=== PATIENT | female | born 1960 | race Caucasian/White ===

== ENCOUNTER 2019-05-31 15:56 | Emergency (ER) | payer OTHER, MEDICARE, SELFPAY ==
--- NOTE | 2019-05-31 16:02 | ED.GENADULT ---
HPI - General Adult General Chief complaint: Ear Stated complaint: Left ear pain Time Seen by Provider: 05/31/19 16:19 Source: patient Mode of arrival: ambulatory Limitations: no limitations History of Present Illness HPI narrative: 58-year-old female patient presents to the [facility] with complaints of left ear pain that started last night and is gotten increasingly worse this morning. Patient denies any fevers that she is aware of. Patient states she was taking some Sudafed as well as using a warm compress over the left ear to help with her pain. Patient rates her pain a 9 out of 10 at this time. Patient denies any discharge coming from the ear that she is aware of. Denies any runny nose, stuffy nose, sore throat or cough symptoms. Patient denies any chronic history of ear infections. Patient states she normally is a swimmer but to the fact that the gyms are close at this time she has not swam in a pool in over a month. Related Data Home Medications Medication Instructions Recorded Confirmed atenolol [Tenormin] 50 mg PO DAILY 05/31/19 05/31/19 carbamazepine [Tegretol XR] 150 mg PO DAILY 05/31/19 05/31/19 escitalopram oxalate [Lexapro] 20 mg PO DAILY 05/31/19 05/31/19 insulin glargine [Basaglar KwikPen 1 unit SUBCUT DAILY 05/31/19 05/31/19 U-100 Insulin] insulin lispro [Humalog KwikPen 1 unit SUBCUT DAILY 05/31/19 05/31/19 Insulin] lisinopril [Zestril] 40 mg PO BID 05/31/19 05/31/19 tizanidine [Zanaflex] 4 mg PO TID 05/31/19 05/31/19 tramadol [Ultram] 50 mg PO TID 05/31/19 05/31/19 Allergies Allergy/AdvReac Type Severity Reaction Status Date / Time Penicillins Allergy Unknown Anaphylaxis Verified 05/31/19 16:20 Review of Systems Review of Systems: Narrative: CONSTITUTIONAL: Denies fever, chills, or sweats. EYES: Denies visual changes, redness, or discharge. ENT: Denies rhinorrhea, congestion, sore throat, positive left otalgia. CARDIOVASCULAR: Denies chest pain, palpitations, or edema. RESPIRATORY: Denies cough or dyspnea. GASTROINTESTINAL: Denies abdominal pain, nausea, vomiting, or diarrhea. GENITOURINARY: Denies dysuria or hematuria. SKIN: Denies rash or itching. MUSCULOSKELETAL: Denies back pain, joint pain, or myalgia. NEUROLOGIC: Denies headache, numbness, or weakness. PSYCHIATRIC: Denies anxiety or depression. PMFSH Social History Social History Gender identity (if verbalized by the patient): Female Comments At the time of my signature I agree with nursing past medical history, surgical, social, and family history. There is no relevant family history pertinent to the presenting complaint. Exam Narrative: Exam Narrative: GENERAL: Well-appearing, well-nourished, and in no acute distress. HEAD: Normocephalic, atraumatic. EYES: PERRLA and EOMI. ENT: Nares clear, no rhinorrhea or epistaxis. Mucous membranes moist. Canal of left ear is swollen, red. The TM on the left side does look normal at this time. There is no obvious discharge noted to the canal. NECK: Supple. No lymphadenopathy CHEST: Clear to auscultation. No respiratory distress. HEART: Regular rate and rhythm. No murmur heard. Normal peripheral pulses. ABDOMEN: Soft, nontender, nondistended, normal active bowel sounds. EXTREMITIES: Normal range of motion. No edema. SKIN: Warm, dry, no rash. NEURO: No focal deficits. Alert and oriented x3. Course Vital Signs Vital signs: Vital Signs Temperature 37.6 C 05/31/19 16:14 Pulse Rate 78 05/31/19 16:14 Respiratory Rate 16 05/31/19 16:14 Blood Pressure 208/85 H 05/31/19 16:14 Pulse Oximetry 98 05/31/19 16:14 Temperature 37.6 C 05/31/19 16:14 Pulse Rate 78 05/31/19 16:14 Respiratory Rate 16 05/31/19 16:14 Blood Pressure 208/85 H 05/31/19 16:14 Pulse Oximetry 98 05/31/19 16:14 Vital signs reviewed. The patient has been informed that they may have pre-hypertension or Hypertension based on a BP reading i
[2019-05-31 16:14] VITALS: BP 208/85; PULSE 78; RESP 16; TEMP 37.6; O2SAT 98
== END 2019-05-31 16:29 | disposition home or self-care (01) ==
PROVIDERS: Emergency Provider Nurse Practitioner Family; PCP Family Medicine
DX: H60.502 Unspecified acute noninfective otitis externa, left ear (principal); G35 Multiple sclerosis; E11.9 Type 2 diabetes mellitus without complications
CPT/HCPCS: 99213; G0463

== ENCOUNTER 2022-08-13 15:16 | Outpatient (CLI) | payer OTHER, MEDICARE, SELFPAY ==
[2022-08-13 16:12] LABS: Anion Gap 6 mmol/L (8-16); Blood Urea Nitrogen 16 mg/dL (7-17); Calcium 8.9 mg/dL (8.4-10.2); Carbon Dioxide 22 mmol/L (22-30); Chloride 103 mmol/L (98-107); Estimated Glomerular Filt Rate > 60; Glucose 191 mg/dL (65-110); Potassium 4.4 mmol/L (3.4-5.0); Sodium 131 mmol/L (137-145)
[2022-08-17 07:33] LABS: Carbamazepine Tegretol 2.9 mcg/mL (4.0-12.0)
== END 2022-08-13 15:17 | disposition home or self-care (01) ==
LOC: ANHSURGERY 15:26
PROVIDERS: Anesthesiology; PCP Emergency Medicine; Visit Provider Urology
DX: N36.42 Intrinsic sphincter deficiency (ISD) (principal); E11.9 Type 2 diabetes mellitus without complications; Z79.899 Other long term (current) drug therapy; Z01.818 Encounter for other preprocedural examination
CPT/HCPCS: 36415; 80048; 80156; 85610; 85730; 87086

== ENCOUNTER 2022-08-17 03:14 | Day surgery (SDC) | payer OTHER, MEDICARE, SELFPAY ==
[2022-08-09 12:05] VITALS: BMI 60.0
--- NOTE | 2022-08-09 12:15 | PC.NURSE ---
Report to the Outpatient Waiting Room, entrance under the green pavilion located off [facility], at time 8:45 on date 08/17/22. Planned Procedure Time: 10:45. Time changes happen often and if your time is changed the preop area will call you the afternoon before. - You and your visitor will be asked to self-screen and do not enter if you have any COVID symptoms. - A mask is optional within the hospital at this time. Patients may have clear liquids (water, carbonated beverages, clear teas, apple juice) until 3 hours prior to surgery (7:45) with a maximum of 20 ounces. - No food from midnight until time of surgery Take the following medications with a SIP of water the morning of surgery: ATENOLOL, LEXAPRO, CLONAZEPAM IF NEEDED DO NOT STOP ANY OF YOUR OTHER PRESCRIPTION MEDICATIONS PRIOR TO SURGERY EXCEPT THE FOLLOWING Medications to discontinue per physician: VITAMINS/SUPPLEMENTS Date to take last dose: 08/13/22 (OR PER DR. BONNER) Please no make-up, nail kiswahili, hairspray, perfume, deodorant, or body powder the day of surgery. No jewelry (including any body piercings) or valuables the day of surgery, leave them at home. Please take a shower or bath the night before, or the morning of, surgery with an antibacterial soap. Wear comfortable, loose fitting clothing. - Jewelry must be removed prior to entering the operating room. Rings and piercings that are not removed may be cut off. - The hospital will not accept responsibility for valuables. - Please leave all valuables, including medications, at home the day of surgery. If you are going home after surgery, a licensed trencher driver must drive you home. - NO public transportation without another adult if you receive anesthesia. - We recommend that an adult stay with you for 24 hours following discharge. - We also recommend that you do not drive, make important decision, drink alcoholic beverages, or take any drugs that were not prescribed by your health care provider for at least 24 hours after your discharge time. Follow any additional instructions given to you from your surgeon. If you or anyone in your household have experienced Covid symptoms in the past week, please notify your surgeon or the nurse liaison at the phone number below for possible testing. Telephone instructions given to PT - RUFINO JOSE and asked if any additional questions and then verbalized understanding. Patient advised to call surgeon office or pre surgery nurse liaison [phone] if any additional questions.
--- NOTE | 2022-08-11 18:11 | PM.IMHP ---
H&P: HPI History of Present Illness Date/Time: 08/11/22 18:11 Chief Complaint: incontinence Narrative: she has mixed urinary incontinence. She is on combination therapy for urge incontinence. She has limited options for her stress incontinence. She is morbidly obese and is undergoing evaluation for weight loss surgery Review of Systems Review of Systems: All systems reviewed & are unremarkable except as noted in HPI and below PMFSH Family History Family History Father Alcoholism Hypertension Depression Heart disease Cerebrovascular accident Other Alcoholism Cancer Hypertension Heart disease Grandparent Alcoholism Hypertension Mother Diabetes mellitus Social History Social History Smoking status: Never smoker Alcohol intake: former Alcohol use details: QUIT 2 YRS AGO Substance use: never Substance use type: does not use Living arrangements: with family Gender identity (if verbalized by the patient): Female Spiritual care concerns: No Meds Home Medications and Allergies Home Medications Medication Instructions Recorded Confirmed Type atenolol 50 mg tablet (Tenormin) 50 mg PO DAILY 05/31/19 08/09/22 History carbamazepine 100 mg 150 mg PO HS 05/31/19 08/09/22 History tablet,extended release,12 hr (Tegretol XR) escitalopram oxalate 20 mg tablet 20 mg PO DAILY 05/31/19 08/09/22 History (Lexapro) insulin glargine 100 unit/mL (3 1 unit subcut DAILY 05/31/19 08/09/22 History mL) subcutaneous pen (Basaglar KwikPen U-100 Insulin) insulin lispro 200 unit/mL (3 mL) 1 unit subcut DAILY 05/31/19 08/09/22 History subcutaneous pen (Humalog KwikPen U-200 Insulin) lisinopril 40 mg tablet (Zestril) 40 mg PO BID 05/31/19 08/09/22 History tizanidine 4 mg tablet (Zanaflex) 4 mg PO HS 05/31/19 08/09/22 History tramadol 50 mg tablet (Ultram) 50 mg PO TID PRN Pain 05/31/19 08/09/22 History atorvastatin 20 mg tablet 20 mg PO DAILY 11/29/21 08/09/22 History biotin 1 mg capsule 1 mg PO DAILY 11/29/21 08/09/22 History cholecalciferol (vitamin D3) 25 25 mcg PO DAILY 11/29/21 08/09/22 History mcg (1,000 unit) capsule clonazepam 0.5 mg tablet 0.5 mg PO DAILY 11/29/21 08/09/22 History clonazepam 0.5 mg tablet 0.5 mg PO QHS 11/29/21 08/09/22 History Lactobacillus 1 cap PO DAILY 08/09/22 08/09/22 History acidophilus-Bifidobac.animalis 2.5 billion cell capsule (Daily Probiotic) magnesium chloride 71.5 mg 71.5 mg PO DAILY 08/09/22 08/09/22 History (magnesium chloride) tablet,delayed release (Slow-Mag) Allergies Allergy/AdvReac Type Severity Reaction Status Date / Time Penicillins Allergy Unknown Anaphylaxis Verified 08/09/22 12:00 latex AdvReac Rash Verified 08/09/22 12:00 Exam Narrative: morbid obesity no acute distress limited mobility Assessment and Plan Assessment and plan (1) Intrinsic sphincter deficiency (ISD): Code(s): N36.42 - Intrinsic sphincter deficiency (ISD) Status: Acute Assessment and Plan: plan for bulking agent. She understands my options a very limited. She has multiple risk factors for incontinence. She understands this will not help her overactive bladder. She understands I am going for improvement in her stress incontinence symptoms but do not expect 100% cure. She understands risks of bleeding, infection, damage to the area checked, urinary retention, need for repeat procedures. She agrees to proceed
[2022-08-17] VITALS (9 sets, daily range): BP systolic 88–135; BP diastolic 42–60; PULSE 43–52; RESP 10–18; TEMP 36.1–36.2; O2SAT 96–100
--- NOTE | 2022-08-17 07:18 | WPDHPUPDATE1 ---
History and Physical Update Update Date/Time: 08/17/22 07:18 History and Physical has been reviewed, including an updated exam of the patient. There are NO changes in the patient's condition. Risks, benefits, and alternatives have been discussed and questions answered. Patient agrees to proceed with procedure.
--- NOTE | 2022-08-17 08:30 | WPDANESEPPF ---
Anes - Initial Pre Proc Eval Procedure: Operation Date: 08/17/22 10:45 Proposed Procedures p Cystoscopy with Injection Bulkamid - Fredis Khan MD Date/Time: 08/17/22 08:30 Surgeon: Fredis Khan MD Pre Op Diagnosis: Intrinsic Sphincter Def Patient Data Age: 62 Gender: F Height: 1.63 m Weight: 158.8 kg Allergies Allergy/AdvReac Type Severity Reaction Status Date / Time Penicillins Allergy Severe Anaphylaxis Verified 08/17/22 09:43 latex AdvReac Intermediate Rash Verified 08/17/22 09:43 Home Medications Medication Instructions Recorded Confirmed Type atenolol 50 mg tablet (Tenormin) 50 mg PO DAILY 05/31/19 08/17/22 History carbamazepine 100 mg 150 mg PO HS 05/31/19 08/17/22 History tablet,extended release,12 hr (Tegretol XR) escitalopram oxalate 20 mg tablet 20 mg PO DAILY 05/31/19 08/17/22 History (Lexapro) insulin glargine 100 unit/mL (3 1 unit subcut DAILY 05/31/19 08/17/22 History mL) subcutaneous pen (Basaglar KwikPen U-100 Insulin) insulin lispro 200 unit/mL (3 mL) 1 unit subcut DAILY 05/31/19 08/17/22 History subcutaneous pen (Humalog KwikPen U-200 Insulin) lisinopril 40 mg tablet (Zestril) 40 mg PO BID 05/31/19 08/17/22 History tizanidine 4 mg tablet (Zanaflex) 4 mg PO HS 05/31/19 08/17/22 History tramadol 50 mg tablet (Ultram) 50 mg PO TID PRN Pain 05/31/19 08/17/22 History atorvastatin 20 mg tablet 20 mg PO DAILY 11/29/21 08/17/22 History biotin 1 mg capsule 1 mg PO DAILY 11/29/21 08/17/22 History cholecalciferol (vitamin D3) 25 25 mcg PO DAILY 11/29/21 08/17/22 History mcg (1,000 unit) capsule Lactobacillus 1 cap PO DAILY 08/09/22 08/17/22 History acidophilus-Bifidobac.animalis 2.5 billion cell capsule (Daily Probiotic) magnesium chloride 71.5 mg 71.5 mg PO DAILY 08/09/22 08/17/22 History (magnesium chloride) tablet,delayed release (Slow-Mag) Ativan 25 mg PO HS 08/17/22 08/17/22 History Patient hx anesthesia problems: none Family hx anesthesia problems: none Results Review: All pre-operative results and documents have been reviewed as part of the pre-operative evaluation. [facility] Past Medical History Medical History (Updated 08/17/22 @ 08:31 by Rick Hobbs DO) Cirrhosis Diabetes Hyperlipidemia Hypertension THA (obstructive sleep apnea) Thrombocytopenia TMJ (temporomandibular joint disorder) Family History Family History Father Alcoholism Hypertension Depression Heart disease Cerebrovascular accident Other Alcoholism Cancer Hypertension Heart disease Grandparent Alcoholism Hypertension Mother Diabetes mellitus Social History Social History Smoking status: Never smoker Alcohol intake: former Alcohol use details: QUIT 2 YRS AGO Substance use: never Substance use type: does not use Living arrangements: with family Gender identity (if verbalized by the patient): Female Spiritual care concerns: No Anes - Eval Final PreProcedure Day of Procedure 08/17/22 08:30 Patient weight: super morbidly obese Heart: regular rate and rhythm Lungs: clear to auscultation Airway: Mallampati scale class III Neurological: alert and oriented Last oral intake: >/= 8 hours ASA classification: IV Emergent: no Anesthetic plan: proceed Anesthesia type and monitoring: general LMA and standard monitoring Results Review: All pre-operative results and documents have been reviewed as part of the pre-operative evaluation. Informed Consent: The patient's anesthetic plan and its attendant risks and benefits were discussed with the patient/family/POA. Questions were solicited and answers provided to the satisfaction of the patient/family/POA.
[2022-08-17 09:44] LABS: Glucose Point of Care 176 mg/dl (65-105)
[2022-08-17] MEDS: LACTATED RINGERS 1,000 ML 30 ML IV CONT ×2 (09:50→12:05)
[2022-08-17 10:06] LABS: INR 1.3; Prothrombin Time 16.7 Seconds (11.1-14.7)
[2022-08-17 10:07] LABS: Partial Thromboplastin Time 30.8 SECONDS (22.3-36.8)
[2022-08-17] MEDS: ceFAZolin 3 GM/D5W 100 ML 100 ML IVPB (11:06)
--- NOTE | 2022-08-17 11:29 | W.PM.PROC2 ---
Procedure Note - Detailed Date of Procedure 08/17/22 Pre-op Diagnosis Intrinsic Sphincter Def Post-op Diagnosis Same Procedure Performed Cystoscopy with suburethral injection of implant material Surgeon Fredis Khan MD Anesthesia MAC and Local Indications This will urinary incontinence. Her BMI is 60. My only option is a bulking agent for her stress incontinence and intrinsic sphincter deficiency. She understands risks of bleeding, infection, lack of efficacy, need for repeat procedures. She agrees to proceed Description of Procedure She was correctly identified. Informed consent obtained. She from the operating room. She was given MAC anesthesia. Uro jet was applied. She was placed in dorsal lithotomy position. She was prepped and draped in a sterile fashion. Time-out performed. It was somewhat difficult to access her bladder due to the amount of soft tissue in the vaginal area. I was able to place the cystoscope. Brief cystoscopy revealed no significant bladder abnormalities. Urethra was open consistent with intrinsic sphincter deficiency. I picked a site urethra 2 cm distal to the bladder neck. I injected the bulking agent circumferentially. I used 1 syringe total. There was excellent bulking effect. Her bladder was left partially full. She was awakened transferred to PACU in stable condition. Estimated Blood Loss 1 Drains No Pathology None sent Complications No immediate complications Condition Stable
--- NOTE | 2022-08-17 12:07 | SUR.PHASEI ---
1205: Simple mask removed.
[2022-08-17 13:02] LABS: Glucose Point of Care 179 mg/dl (65-105)
== END 2022-08-17 13:53 | disposition home or self-care (01) ==
PROVIDERS: Anesthesiology; PCP Emergency Medicine; Visit Provider Urology
PROC: 3E0K8GC Introduction of Other Therapeutic Substance into Genitourinary Tract, Via Natural or Artificial Opening Endoscopic (ICD-10-PCS; CPT 51715; principal; 2022-08-17 10:45)
DX: N36.42 Intrinsic sphincter deficiency (ISD) (principal); N39.46 Mixed incontinence; E11.9 Type 2 diabetes mellitus without complications; E78.5 Hyperlipidemia, unspecified; I10 Essential (primary) hypertension; K74.60 Unspecified cirrhosis of liver; Z79.4 Long term (current) use of insulin; E66.01 Morbid (severe) obesity due to excess calories; Z68.43 Body mass index [BMI] 50.0-59.9, adult
CPT/HCPCS: 51715; 36415; 80048; 80156; 82948; 85610; 85730; 87086; J0690; J1100; J2405; J2704; J3010; J7120; L8606